=== PATIENT | female | born 1955 | race Caucasian/White ===

== ENCOUNTER → 2024-03-21 06:32 | Day surgery (SDC) | payer OTHER, SELFPAY | LOC: GI 06:32 | PROVIDERS: ATTENDING PHYSICIAN Internal Medicine Gastroenterology | DX: Z12.11 Encounter for screening for malignant neoplasm of colon (principal); K57.30 Diverticulosis of large intestine without perforation or abscess without bleeding; K64.8 Other hemorrhoids | CPT/HCPCS: G0121 ==

== ENCOUNTER → 2025-02-27 10:07 | Outpatient (REF) | payer OTHER, SELFPAY | LOC: WDC 10:07 | PROVIDERS: ATTENDING PHYSICIAN Obstetrics & Gynecology; FAMILY PHYSICIAN Family Medicine | DX: N64.4 Mastodynia (principal) | CPT/HCPCS: 76642; 77062; 77066 ==

== ENCOUNTER 2025-10-13 04:26 | Emergency (ER) | payer OTHER, SELFPAY ==
[2025-10-13 04:31] VITALS: BP 180/94
--- NOTE | 2025-10-13 05:16 | ED.GENMED ---
History of Present Illness
General
Chief Complaint: Skin Problem
Source: patient
Exam Limitations: none
Time Seen by Provider: 10/13/25 05:14
Nursing documentation reviewed up to this point in time: agreed with
History of Present Illness
History of Present Illness:
Pt presents to ED secondary to persistent fullness/pulling sensation on top of her scalp over the past one week. Pt states that symptoms started shortly after using hot curling iron to her hair. Since then, whenever she lays down, she feels pulling
sensation, not present when sitting or standing up. Denies swelling. Denies pain. Denies headache. Pt was seen by pcp and was told to keep on eye on her symptoms.
Past History
Past History
ED Past Medical History: Hypercholesterolemia
ED Past Surgical History: Gynecological
Social History
Tobacco: Non-smoker
Drug: None
Personal:
Living: with family
Employment: Employed
Family History
Family History: Other
Review of Systems
Review of Systems
Allergies reviewed?: Yes
All Other Systems: ROS reviewed and negative except as documented in HPI and ROS
Constitutional: Reports no symptoms
Skin: Reports other (scalp fullness)
Neurological: Reports no symptoms
Phy Exam
Physical Exam
Physical Exam:
General: well nourished female in no acute distress. afebrile
Heent: nc/at. eomi
Neuro: aao x 3. no focal neurological deficit
Skin: scalp without any erythema/swelling/ecchymosis/open wound
Psych: pleasant and cooperative
Course
Vital Signs
Initial and Last Documented VS:
Initial Vital Signs
Temp Pulse Resp BP Pulse Ox
98.2 F 85 20 180/94 100
10/13/25 04:31 10/13/25 04:31 10/13/25 04:31 10/13/25 04:31 10/13/25 04:31
Last Documented Vital Signs
Temp Pulse Resp BP Pulse Ox
98.2 F 85 20 180/94 100
10/13/25 04:31 10/13/25 04:31 10/13/25 04:31 10/13/25 04:31 10/13/25 05:16
MDM/Problems Addressed
MDM/Problems Addressed:
Pt without acute findings on exam nor any symptoms concerning for any intra-cranial process. No indication for any further workup at this time. Will advise pcp for re-evaluation, if symptoms persist
*Pulse Oximetry
SaO2: 100
Oxygen Mode of Delivery: Room air
Patient hypoxic: no
*Critical Care Note
Total Time (30-74mins, 75-104mins- exclusive of procedures): Not Applicable
ED Attending Note
-
Portions of this chart may have been created with voice recognition software.� Occasional wrong word or��sound alike� substitutions may have occurred due to the inherent limitations of voice recognition software.
Discharge Plan
Departure
Patient Disposition: Home (Routine Discharge)
Date of Disposition: 10/13/25
Time of Disposition: 05:16
Patient with high blood pressure during this ER visit?: Yes
Condition: Good
Discharge Problem:
Scalp pain
Referrals:
Zeyad Pal DO [Family Provider, Family Practice]
Activity Restrictions/Additional Instructions:
As discussed, please follow-up with your primary care physician for reevaluation in 1 to 2 weeks.
Interventions
Interventions:
*Risk Screen - Suicide Last Done: 10/13/25 04:31
*General Assessment Last Done: 10/13/25 04:31
*Neglect/Abuse Screening Last Done: 10/13/25 04:31
*ED- Fall Risk Assessment Last Done: 10/13/25 05:06
*ED COVID-19 Vaccine History Last Done: 10/13/25 05:06
*ED Influenza Vaccine History Last Done: 10/13/25 05:06
*Nursing Disposition Last Done: 10/13/25 05:19
ED-Skin Assessment Last Done: 10/13/25 05:06
Discharge Date and Time
Discharge Date/Time: 10/13/25 05:20
Print Language: MALAYSIAN
== END 2025-10-13 05:20 | disposition home or self-care (01) ==
LOC: EMR 04:26
PROVIDERS: EMERGENCY PHYSICIAN Emergency Medicine; FAMILY PHYSICIAN Family Medicine
DX: R51.9 Headache, unspecified (principal); R03.0 Elevated blood-pressure reading, without diagnosis of hypertension; E78.00 Pure hypercholesterolemia, unspecified; Z88.0 Allergy status to penicillin
CPT/HCPCS: 99282

== ENCOUNTER 2025-10-14 19:59 | Emergency (ER) | payer MEDICARE, OTHER, SELFPAY ==
[2025-10-14 20:03] VITALS: BP 181/87
[2025-10-14 20:07] VITALS: BP 162/79
[2025-10-14 20:25] LABS: Hematocrit 40.8 % (37.0-47.0); Hemoglobin 13.7 g/dL (12.0-16.0); Mean Corp Hgb Conc. 33.6 g/dL (33.0-37.0); Mean Corpuscular Volume 82.9 fL (81.0-99.0); Nucleated Red Blood Cells % 0 %; Platelet Count 284 10^3/uL (130-400); Red Cell Dist. Width 13.3 % (11.5-14.5)
[2025-10-14 20:38] LABS: ALT (SGPT) 26 U/L (0-35); AST (SGOT) 27 U/L (14-36); Albumin 4.7 g/dl (3.5-5.0); Alkaline Phosphatase 65 U/L (38-126); Blood Urea Nitrogen 18 mg/dl (7-17); Calcium 9.6 mg/dl (8.4-10.2); Carbon Dioxide 26 mmol/L (22-30); Chloride 104 mmol/L (98-107); Glucose 119 mg/dl (70-99); Potassium 4.0 mmol/L (3.5-5.1); Sodium 137 mmol/L (135-145); Total Protein 7.2 g/dl (6.3-8.2); eGFR > 60.00
[2025-10-14 20:46] LABS: Troponin I < 0.012 ng/ml
--- NOTE | 2025-10-14 23:21 | ED.GENMED ---
History of Present Illness
General
Chief Complaint: Blood Pressure Problem
Time Seen by Provider: 10/14/25 22:48
Nursing documentation reviewed up to this point in time: agreed with
History of Present Illness
History of Present Illness:
70-year-old female presents to the ER for evaluation of severe pain in her left scalp which has been present for the last 8 days. Patient denies any direct injury or trauma other than perhaps her daughter injured her using the curling iron. She
states a burning discomfort which is reproduced on brushing of her hair or moving the hairs on her scalp. She denies headache per se. No change in vision. No paresthesias. No focal weakness. She had been seen in the emergency department last
week and followed up with her primary care physician. She admits to feeling severe anxiety over multiple family members with current illness. Patient has been eating and drinking. No syncope or trauma.
Past History
Past History
ED Past Medical History: Hypercholesterolemia
ED Past Surgical History: Gynecological
Social History
Tobacco: Non-smoker
Drug: None
Personal:
Living: with family
Employment: Employed
Family History
Family History: Other
Phy Exam
Physical Exam
Physical Exam:
Patient is awake, alert, appears in no acute distress, head is NCAT, PERRL, EOMI mucous membranes moist, conjunctiva pink, heart regular rate and rhythm without murmurs or ectopy, lungs are clear to auscultation without wheezes rales or rhonchi, no
JVD, abdomen is soft and nontender on palpation, extremities without edema, GCS is 15, no dysdiadochokinesia, no ataxia, no pronator drift, pain is reproduced on palpation over the left greater occipital foramen and on movement of the hair along the
left scalp, there are no scalp lesions noted
Course
Orders/Labs/Results
Orders:
Orders
10/14/25 20:06
Electrocardiogram (*1) Urgent
Reason for Study: Chest Pain
EKG- Treatment ONCE
10/14/25 20:15
Complete Blood Count/With Diff Urgent
Comprehensive Metabolic Panel Urgent
Troponin I Urgent
10/14/25 23:16
CT Head W/o Iv Contrast Urgent
Comment:
Reason For Exam: atraumatic head pain
Abnormal Lab Results
10/14/25
20:15
BUN 18 H mg/dl
(7-17)
Glucose 119 H mg/dl
(70-99)
10/14/25 20:15
10/14/25 20:15
CBC within normal limits. Kidney function preserved. Troponin normal
Vital Signs
Initial and Last Documented VS:
Initial Vital Signs
Temp Pulse Resp BP Pulse Ox
98 F 98 16 181/87 100
10/14/25 20:03 10/14/25 20:03 10/14/25 20:03 10/14/25 20:03 10/14/25 20:03
Last Documented Vital Signs
Temp Pulse Resp BP Pulse Ox
98 F 94 16 162/79 99
10/14/25 20:03 10/14/25 20:07 10/14/25 20:07 10/14/25 20:07 10/14/25 23:22
MDM/Problems Addressed
Differential Diagnosis Includes:
Differential diagnosis to consider but not limited to occipital neuralgia, intracranial hemorrhage, CVA along with other etiologies considered
Chronic conditions affecting care:
Anxiety, hyperlipidemia, age greater than 50
*Radiology
Radiology exam reviewed: radiology read reviewed (no acute findings on CT head)
*Pulse Oximetry
SaO2: 99
Oxygen Mode of Delivery: Room air
Patient hypoxic: no
*EKG
Interpreted by ED Provider?: Yes (I independently viewed and interpreted twelve-lead EKG showing sinus rhythm with PACs, rate 85, normal axis, normal intervals, this is a nonspecific EKG without evidence for acute ischemia, no significant change
compared to prior from 03/15/2022)
*Urogynaecologist Interpretation
Rate: normal (I independently viewed and interpreted rhythm strip showing sinus rhythm with PACs)
*Critical Care Note
Total Time (30-74mins, 75-104mins- exclusive of procedures): Not Applicable
Update Note
Update Note:
I discussed with patient physical exam most consistent with occipital neuralgia and treatment of same. Given patient's elevated blood pressure and her severe concern that she has an acute intracranial etiology of her symptoms, we discussed utility
of CT scan. She has an NIH stroke scale of 0, she has a normal neuroexam, but she is severely worried. I believe that her worry is causing elevation in her blood pressure. CT of head ordered to rule out acute worrisome intracranial process. Once
test result available, I discussed with patient and present bedside no acute worrisome process found. We discussed topical treatments for muscle spasm in her neck along with benefit of follow-up with primary care physician. We also
discussed strategies in order to handle the family stress that she is currently undergoing. She felt comfortable with plan for discharge and had no questions prior to leaving the department.
ED Attending Note
-
Portions of this chart may have been created with voice recognition software.� Occasional wrong word or��sound alike� substitutions may have occurred due to the inherent limitations of voice recognition software.
Discharge Plan
Departure
Patient Disposition: Home (Routine Discharge)
Date of Disposition: 10/15/25
Time of Disposition: 00:17
Patient with high blood pressure during this ER visit?: Yes
Discharge Problem:
Occipital neuralgia of left side
Instructions: Neuropathic pain, BLOOD PRESSURE
Referrals:
Stanley Cardona MD [Family Provider, Radiology]
Activity Restrictions/Additional Instructions:
Use Tylenol as needed for discomfort. You may also apply topical pain relieving creams (Salonpas, Voltaren, or similar [id number] medications (as per package instructions) to the area on your posterior neck to help with pain. Please
follow-up with your primary care physician this week for reevaluation and further care. Return to the ER for any concerns
Interventions
Interventions:
*Risk Screen - Suicide Last Done: 10/14/25 20:03
*General Assessment Last Done: 10/14/25 22:56
*Neglect/Abuse Screening Last Done: 10/14/25 20:03
*ED- Fall Risk Assessment Last Done: 10/14/25 22:56
*ED COVID-19 Vaccine History Last Done: 10/14/25 22:56
*ED Influenza Vaccine History Last Done: 10/14/25 22:56
*Nursing Disposition Last Done: 10/15/25 00:25
ED- Cardiac Assessment Last Done: 10/14/25 23:21
ED- Neurological Assessment Last Done: 10/14/25 23:21
ED- Pulmonary Assessment Last Done: 10/14/25 23:21
Discharge Date and Time
Discharge Date/Time: 10/15/25 00:26
Print Language: CZECH
== END 2025-10-15 00:26 | disposition home or self-care (01) ==
LOC: EMR 19:59
PROVIDERS: Emergency Medicine; EMERGENCY PHYSICIAN Emergency Medicine; FAMILY PHYSICIAN Radiology Radiation Oncology
DX: M54.81 Occipital neuralgia (principal); F41.9 Anxiety disorder, unspecified; E78.00 Pure hypercholesterolemia, unspecified
CPT/HCPCS: 99284; 70450; 80053; 84484; 85025; 93005